=== PATIENT | female | born 1945 | race American Indian/Alaskan Native ===

== ENCOUNTER 2016-06-26 11:25 | Inpatient (IN) | payer MEDICARE ==
--- NOTE | 2016-06-26 12:22 | XRay Report ---
AP CHEST: HISTORY: Shortness of breath Cardiomegaly, vascular congestion and trace left pleural effusion are suspected. No evidence for pneumonia or pneumothorax. The bony structures are intact. IMPRESSION: Correlate for mild CHF.
[2016-06-26 13:12] LABS: Basophils % (Auto) 0.3 % (0.0-1.8); Hematocrit 36.4 % (30.3-42.9); Hemoglobin 11.8 gm/dl (10.1-14.3); Mean Corpuscular HGB Conc 33 % (30-34); Mean Corpuscular Hemoglobin 31 pg (28-32); Mean Corpuscular Volume 94 fl (79-97); Platelet Count 250 K/mm3 (140-440); Red Blood Count 3.86 M/mm3 (3.65-5.03); Red Cell Distribution Width 15.8 % (13.2-15.2); White Blood Count 10.2 K/mm3 (4.5-11.0)
[2016-06-26 13:23] LABS: INR 2.88 (0.87-1.13); Partial Thromboplastin Time 41.4 Sec. (24.2-36.6)
[2016-06-26 14:07] LABS: BUN/Creatinine Ratio 17.05; Calcium 9.1 mg/dL (8.4-10.2); Potassium 4.4 mmol/L (3.6-5.0)
--- NOTE | 2016-06-26 14:34 | Cat Scan Report ---
CT HEAD WITHOUT CONTRAST: HISTORY: Head injury. Serial contiguous axial images were obtained through the cranium. Intravenous contrast material was not administered. The ventricles are normal in size and appearance. There is no mass effect or midline shift. No areas of abnormally increased or decreased attenuation are seen. No mass lesion is seen. The mastoid air cells and visualized portions of the sinuses are normal. IMPRESSION: Cranial CT scan within normal limits.
--- NOTE | 2016-06-26 15:13 | Emergency Department Report ---
ED Syncope HPI - General Chief Complaint: Dyspnea/Respdistress Stated Complaint: SOB/BLACKED OUT Time Seen by Provider: 06/26/16 13:30 - History of Present Illness Initial Comments: The patient states that she was in the bathroom on the commode and she tried to get up. Some time later she found herself on the floor. Apparently she completely lost consciousness and had a syncopal episode. She hit the left side of her face and complains of discomfort there. She does not complain of headache or neck pain. She's had no nausea or vomiting. She denies any focal neurological change otherwise. She reports no other injury. The patient has recently been placed on an anticoagulant by Dr. Odonnell in the office. She is a poor historian. She cannot tell me the duration of her atrial fibrillation. Timing/Prior Episodes: no prior history (no prior history of syncope), single episode today Precipitating Factors: Positive: none Context: sitting, standing (sitting than standing) Loss of Consciousness: brief (seconds) (uncertain duration) Current Symptoms: back to normal - Related Data Allergies/Adverse Reactions: Allergies No Known Allergies Allergy (Unverified 06/26/16 11:32) Home Medications: Ambulatory Orders No Known Home Medications [No Reported Home Medications] 06/26/16 ED Review of Systems ROS: Stated complaint: SOB/BLACKED OUT Other details as noted in HPI Constitutional: denies: chills, fever Eyes: other (periorbital discomfort but no change in vision). denies: eye pain , eye discharge, vision change ENT: denies: ear pain, throat pain Respiratory: denies: cough, shortness of breath, wheezing Cardiovascular: denies: chest pain, palpitations Endocrine: no symptoms reported Gastrointestinal: denies: abdominal pain, nausea, diarrhea Genitourinary: denies: urgency, dysuria, discharge Musculoskeletal: denies: back pain, joint swelling, arthralgia Skin: denies: rash, lesions Neurological: denies: headache, weakness, numbness, paresthesias, confusion, abnormal gait, vertigo Psychiatric: denies: anxiety, depression Hematological/Lymphatic: other (on oral anticoagulation). denies: easy bleeding , easy bruising ED Past Medical Hx - Past Medical History Previous Medical History?: Yes Hx Hypertension: Yes Additional medical history: SOB - Surgical History Past Surgical History?: No - Social History Smoking Status: Former Smoker Substance Use Type: Alcohol, Prescribed - Medications Home Medications: Home Medications Medication Instructions Recorded Confirmed Last Taken Type No Known Home Medications [No 06/26/16 06/26/16 Unknown History Reported Home Medications] ED Physical Exam - General Limitations: No Limitations General appearance: alert, in no apparent distress - Head Head exam: Present: atraumatic, normocephalic - Eye Eye exam: Present: normal appearance. Absent: scleral icterus - ENT ENT exam: Present: mucous membranes moist, other (periorbital ecchymosis no hematoma and no subconjunctival hemorrhage no deformity) - Neck Neck exam: Present: normal inspection - Respiratory Respiratory exam: Present: normal lung sounds bilaterally. Absent: respiratory distress - Cardiovascular Cardiovascular Exam: Present: tachycardia, irregular rhythm. Absent: systolic murmur, diastolic murmur, rubs, gallop - GI/Abdominal GI/Abdominal exam: Present: soft, normal bowel sounds. Absent: distended, tenderness, guarding, rebound, rigid - Extremities Exam Extremities exam: Present: normal inspection - Back Exam Back exam: Present: normal inspection - Neurological Exam Neurological exam: Present: alert, oriented X3, CN II-XII intact. Absent: motor sensory deficit - Psychiatric Psychiatric exam: Present: normal affect, normal mood - Skin Skin exam: Present: warm, dry, intact, normal color. Absent: rash ED Course Vital Signs 06/26/16 06/26/16 12:00 13:24 Temperature 98.3 F 97.9 F Pulse Rate 118 H 107 H Respiratory 20 16 Rate Blood Pressure 157/92 Blood Pressure 143/88 [Right] O2 Sat by Pulse 99 98 Oximetry - Reevaluation(s) Reevaluation #1: Patient was admitted by Dr. Arenas to the hospitalist service. Her CT was negative. Her atrial fibrillation was around the low 100s. She is admitted for further care and evaluation of her syncopal episode. 06/26/16 15:13 06/26/16 15:13 ED Medical Decision Making - Lab Data Result diagrams: 06/26/16 12:32 06/26/16 12:32 - EKG Data -: EKG Interpreted by Me Rate: tachycardia - EKG Data When compared to previous EKG there are: changes noted Interpretation: other (fibrillation with rapid ventricular response. LVH. There is ST depression notable in the inferolateral leadssomewhat worse compared to prior) Critical care attestation.: If time is entered above; I have spent that time in minutes in the direct care of this critically ill patient, excluding procedure time. ED Disposition Clinical Impression: Atrial fibrillation with RVR, Abnormal EKG Syncope Qualifiers: Syncope type: unspecified Qualified Code(s): R55 - Syncope and collapse Contusion, periorbital Qualifiers: Encounter type: initial encounter Laterality: left Qualified Code(s): S05.12XA - Contusion of eyeball and orbital tissues, left eye, initial encounter Disposition: OP ADMITTED IP TO THIS HOSP Is pt being admited?: Yes Does the pt Need Aspirin: Yes Condition: Stable Instructions: Syncope (ED) Time of Disposition: 15:16
[2016-06-26] MEDS ORDERED: BABY ASPIRIN PO ONE (15:16)
--- NOTE | 2016-06-26 15:22 | Admit Criteria Form ---
Admission Criteria Documentation: SYNCOPE Clinical Indications for Admission to Inpatient Care ( Place 'X' for any and all applicable criteria): Admission is indicated for syncope and ANY ONE of the following (1)(2)(3)(4)(5) (6)(7) : [X]I. Inpatient admission required rather than observation care (Also use Syncope: Observation Care Criteria as appropriate) because of ANY ONE of the following: [ ]a) Hemodynamic instability that is severe or persistent [X]b) Cardiac arrhythmias of immediate concern identified or strongly suspected (eg, needs electrophysiologic study) [ ]c) Acute coronary syndrome identified (Also use Myocardial Infarction or Angina Criteria form ) [ ]d) Structural cardiac disorder (eg, aortic stenosis) suspected as cause that requires immediate correction [ ]e) Respiratory symptoms (eg, dyspnea, tachypnea) that are severe or persistent [ ]f) Neurologic signs or symptoms that are severe or persistent ( eg, stroke, seizures, altered mental status) [ ]g) Severe electrolyte abnormalities requiring inpatient care [ ]h) Supplemental oxygen or respiratory treatment for over 24 hrs that are performable only in acute inpatient setting [ ]i) IV fluid to replace significant ongoing (eg, for over 24 hrs ) losses (>3 L/m2 per day) [ ]j) Continuous intravenous infusion of anticoagulation, platelet inhibitor, vasoactive, or antiarrhythmic medication(15)(16) [ ]k) Pulmonary artery catheter monitoring [ ]l) Temporary pacemaker placement(17) [ ]m) Emergent cardioversion(18) [X]n) Other conditions, treatment or monitoring requiring inpatient admission [ ]II. Suspicion of imminently dangerous cause (eg, rare causes like pericardial tamponade, pulmonary embolism) [ ]III. Syncope causing severe injury requiring hospitalization Extended stay beyond goal length of stay may be needed for(28) [ ]a) Dangerous arrhythmia(15)(23)(27)(29) [ ]b) Myocardial ischemia [ ]c) Seizure disorder [ ]d) Syncope-related injuries The original [employer] content created by [employer] has been revised. The portions of the content which have been revised are identified through the use of italic text or in bold, and [facility] [employer] has neither reviewed nor approved the modified material. All other unmodified content is copyright [facility] [employer]. Please see references footnoted in the original [facility] edition 2016 Admission Criteria Met: Yes
[2016-06-26] MEDS ORDERED: BABY ASPIRIN ONE (16:37)
--- NOTE | 2016-06-26 23:16 | Event Note ---
Date: 06/26/16 See H/p in reports Syncope and collapse A fib with tachycardia HTN
[2016-06-26] MEDS ORDERED: SODIUM CHLORIDE FLUSH SYRINGE 10 ML IV PRN ×2 (23:20→23:26)
[2016-06-26] MEDS ORDERED: NACL 0.9% 1000 ML 1,000 ML IV SCH (23:45)
--- NOTE | 2016-06-27 01:06 | Event Note ---
EDMD code blue note/intubation note Called to the floor for CODE BLUE in progress. Upon my arrival patient was being bagged by respiratory therapy. Initial rhythm revealed PEA. Patient was intubated by myself. Patient was then left in the care of the hospitalist, Dr Ce Uribe who was at bedside The patient was intubated via orotracheal route using a 7.0 mm endotracheal tube. Rapid sequence induction was not used. Positioning was confirmed using auscultation and CO2 detector. Pulmonary: Agonal respirations. Breath sounds equal bilaterally after intubation Cardiovascular: No heart sounds auscultated. PEA on monitor Neuro: GCS 3T
[2016-06-27 01:17] VITALS: BP 124/81
[2016-06-27 01:25] LABS: Creatine Kinase MB 2.4 ng/mL (0.0-4.0)
[2016-06-27 01:29] LABS: Creatine Kinase 41 units/L (30-135)
--- NOTE | 2016-06-27 01:45 | History and Physical Report ---
CHIEF COMPLAINT: 1. Passed out. 2. Shortness of breath. HISTORY OF PRESENT ILLNESS: A 71-year-old female with no significant past medical history except for hypertension, comes in for passing out while she was trying to get up from the commode. She found herself on the floor. She apparently lost a complete consciousness, hit the left side of her face and complains of discomfort above the left eye. No lacerations. No nausea, no vomiting. No focal deficits. No fever, no chills. The patient is a very poor historian. The patient was also placed on anticoagulation because of her atrial fibrillation. PAST MEDICAL HISTORY: As mentioned, significant for hypertension and atrial fibrillation. PAST SURGICAL HISTORY: None. SOCIAL HISTORY: Former smoker. Alcohol occasionally. CURRENT MEDICATIONS: Unable to tell me the medications. FAMILY HISTORY: Hypertension. REVIEW OF SYSTEMS: CONSTITUTIONAL: No fever, no chills, no weight loss. HEENT: No sore throat, no postnasal drip. CARDIOVASCULAR AND RESPIRATORY: No shortness of breath, no chest pain, no palpitations. GASTROINTESTINAL: No nausea, no vomiting, no diarrhea. MUSCULOSKELETAL: No joint pains. CENTRAL NERVOUS SYSTEM: No seizures, but had syncope. SKIN: No rashes. PSYCHIATRIC: No depression. No homicidal or suicidal tendencies. HEMATOLOGIC AND LYMPHATIC: No easy bruising. A 14-point review of systems was done. PHYSICAL EXAMINATION: GENERAL: On examination, elderly female, cooperative during examination. VITAL SIGNS: Temperature 98.3, pulse is 118, respirations 20, blood pressure 157/92, sats are 99%. HEENT: Unremarkable. Pupils equal and reactive. NECK: Supple, no lymphadenopathy, no thyromegaly. LUNGS: Clear to auscultation and percussion. Good air entry. CARDIOVASCULAR: S1, S2 heard. No gallop, no murmur, no rub. Apical impulse in left fifth intercostal space and midclavicular line. Irregularly irregular heart rate. ABDOMEN: Soft and benign. No hepatosplenomegaly. No guarding, no rigidity. Hernial orifices are normal. EXTREMITIES: Good pedal pulses. No pedal edema. CENTRAL NERVOUS SYSTEM: Alert and oriented x 4, nonfocal exam. DIAGNOSTIC DATA: EKG shows atrial fibrillation, heart rate in the low 100s ____ upper 90s. Labs were essentially normal. BUN and creatinine is 29 and 1.7 and sodium is 146. EKG shows atrial fibrillation with a slightly rapid ventricular response, ____ is notable. Chest x-ray was normal. ASSESSMENT AND PLAN: 1. Syncope, syncope workup. Carotid duplex scan, echocardiogram, and Lexiscan. 2. Hypertension. Continue antihypertensives. 3. Atrial fibrillation. Needs anticoagulation. We will defer to the cardiology. 4. Deep venous thrombosis prophylaxis, Lovenox 40 mg subcutaneous daily. JOB# [id number] VSM/NTS
--- NOTE | 2016-06-27 01:51 | Event Note ---
Date: 06/26/16 CODE BLUE called Patient was getting up to use the bedside commode when she had a syncopal episode. She had no pulse, initial rhythm was PEA, CPR was initiated Patient was intubated by Dr. Ramon CPR was continued according to ACLS protocol There was ROSC, but pulse was quickly lost, she went into [facility] and was shocked 2x There was ROSC, she was transferred to the ICU and coded again She was shocked once, refer to code sheet for details The patient is hypotensive, unable to obtain blood pressure Central line d/w son who consented Consult cardiology, case d/w Dr Amezcua, no further recommendations from cardiology Start levophed, repeat labs D/w family Code blue again After extensive resuscitation efforts, the code was stopped by the son after 25 minutes\ Time of 0339 CC time 70 minutes
[2016-06-27] MEDS ORDERED: LEVOPHED DRIP 4 MG/NS 250 ML 4 MG/250 ML BAG IV ONE (02:36)
--- NOTE | 2016-06-27 02:51 | Event Note ---
Date: 06/27/16 2:48 am I was requested by Dr. Uribe to come and place a central line for Miss Gomes who had experienced cardiac arrest while on the floor 100 but moved to the ICU. Patient had poor blood pressure and diminished pulses and a central line was needed for vasopressors. I discussed with the family quickly the risks and benefits and did standard procedure for central line placement. The site was prepped with ChloraPrep and standard gown, gloves,, mask and sterile drapes are placed. Initially the right femoral was attempted without ultrasound but unable to get good blood flow, go to the left side and use ultrasound and was able to visualize the needle inserted into the femoral vein and visualize the guidewire inside the femoral vein, he is set to Dr. murdock to insert a triple lumen catheter without any significant complication.
[2016-06-27] MEDS ORDERED: ARTIFICIAL TEARS OPHTH OINT OU PRN (03:06)
[2016-06-27] MEDS ORDERED: VASELINE LIP THERAPY TP PRN (03:06)
[2016-06-27] MEDS ORDERED: NACL 0.9% 500 ML IV SCH (04:00)
[2016-06-27] MEDS ORDERED: ATIVAN 100 MG in NACL 0.9% 50 ML, VIAFLEX EMPTY CONTAINER 0 ML IV SCH (04:00)
[2016-06-27] MEDS ORDERED: NACL 0.9% 1000 ML ONE (08:00)
--- NOTE | 2016-06-27 12:15 | XRay Report ---
FINAL REPORT PROCEDURE: XRAY CHEST SINGLE VIEW TECHNIQUE: Chest radiograph anteroposterior view. CPT 54369 HISTORY: et placement COMPARISON: No prior studies are available for comparison. FINDINGS: Heart: Heart is borderline enlarged. Mediastinum/Vessels: Normal. Lungs/Pleural space: There is moderate COPD. There are infiltrates at the right lung base. There are no effusions. There are no pneumothoraces.. Bony thorax: No acute osseous abnormality. Life support devices: Endotracheal tube is in the mid trachea.. IMPRESSION: Heart is borderline enlarged. There is moderate COPD. There are infiltrates at the right lung base. There are no effusions. There are no pneumothoraces.. Endotracheal tube is in the mid trachea.. .
--- NOTE | 2016-06-27 12:28 | Event Note ---
Date: 06/27/16 Just informed of this consult Unfortunately patient suffered multiple cardiac arrest events and passed earlier this am.
[2016-06-27] MEDS ORDERED: ADRENALIN ONE (19:26)
[2016-06-27] MEDS ORDERED: INTROPIN DRIP 800 MG/D5W 250 ML IV ONE (19:31)
[2016-06-27] MEDS ORDERED: CORDARONE IV ONE (19:31)
[2016-06-27] MEDS ORDERED: MAGNESIUM SULFATE ONE (19:31)
[2016-06-27] MEDS ORDERED: ADRENALIN IV ONE (19:31)
[2016-06-27] MEDS ORDERED: LOVENOX SUB-Q SCH ×2 (22:00)
== END 2016-06-27 10:00 | DRG 312 ==
LOC: ED 11:25 → 4A 15:05 → CC1 06-27 02:35
PROVIDERS: ADMIT Internal Medicine; ATTEND Internal Medicine
PROC: 5A1935Z Respiratory Ventilation, Less than 24 Consecutive Hours (ICD-10-PCS; principal; 2016-06-27)
PROC: 5A2204Z Restoration of Cardiac Rhythm, Single (ICD-10-PCS; 2016-06-27)
PROC: B54CZZA Ultrasonography of Left Lower Extremity Veins, Guidance (ICD-10-PCS; 2016-06-27)
PROC: 06HN33Z Insertion of Infusion Device into Left Femoral Vein, Percutaneous Approach (ICD-10-PCS; 2016-06-27)
PROC: 0BH17EZ Insertion of Endotracheal Airway into Trachea, Via Natural or Artificial Opening (ICD-10-PCS; 2016-06-27)
DX: R55 Syncope and collapse (principal); I46.9 Cardiac arrest, cause unspecified; S05.12XA Contusion of eyeball and orbital tissues, left eye, initial encounter; I95.9 Hypotension, unspecified; I10 Essential (primary) hypertension; I48.91 Unspecified atrial fibrillation; Z82.49 Family history of ischemic heart disease and other diseases of the circulatory system; Z79.01 Long term (current) use of anticoagulants; Z72.89 Other problems related to lifestyle
CPT/HCPCS: 36415; 70450; 71010; 71020; 80048; 82550; 82553; 82962; 84484; 85025; 85610; 85730; 93005; 93010; J0171; J0282; J1265; J3475; J7030